=== PATIENT | female | born 1935 | race Caucasian/White ===

== ENCOUNTER → 2016-07-08 | Outpatient (CLI) | payer MEDICARE, OTHER ==
--- NOTE | 2016-07-08 14:26 | DI ---
Indication: Rectal cancer with history of chemoradiation therapy and last therapy 07/07/2016 Procedure: PET/CT SKULL TO THIGH INITIAL: Encounter: Initial Comparison: Limited/localizer abdominal pelvic CT 06/26/2016 Technique: Nuclear medicine PET scanning was performed after the administration of 15.3 mCi of F-18 FDG from the base of the skull to the thigh. Noncontrast concurrent CT scanning was performed for attenuation correction and localization purposes only. These images do not constitute a diagnostic quality CT examination and are not used to diagnose disease independently of the PET images. A glucose level before injection was 104 mg/dl. FINDINGS: Head/neck: No abnormal FDG activity identified within the visualized brain allowing for physiologic hypermetabolic activity. MRI remains the most sensitive/basilic modality for intracranial metastatic disease. No hypermetabolic cervical lymphadenopathy. Chest: Focal area of airspace consolidation within the anterior right midlung with some mild surrounding reticulonodular opacities. This demonstrates increased FDG uptake with a maximum SUV of 4.07. Nonpathologically enlarged 6 mm short axis lower right paratracheal lymph node demonstrates mildly increased FDG activity with a maximum issue be of 3.41. Partially calcified subcentimeter AP window/prevascular lymph nodes demonstrate maximum SUV of 2.03. Additional more densely calcified pulmonary nodules and mediastinal lymph nodes consistent with remote granulomatous disease. Coronary arterial and thoracic aortic atherosclerotic calcifications incidentally noted. Abdomen/pelvis: Hypermetabolic FDG uptake associated with the previously noted rectal wall thickening/biopsy-proven malignancy, with a maximum SUV of 15.8. No other hypermetabolic abdominopelvic visceral mass or lymphadenopathy identified. Moderate to large hiatal hernia, calcified splenic granulomas, cholecystectomy, aortoiliac atherosclerotic calcifications, and colonic diverticulosis incidentally noted. Osseous structures/soft tissues: No hypermetabolic osseous or soft tissue lesion seen. Degenerative spondylosis of the spine and a pain stimulator device extending to the left sacrum incidentally noted. Normal physiologic accumulation of FDG is identified within the brain, kidneys, renal collecting systems/ureters/bladder, liver, myocardium, and bone marrow. IMPRESSION: 1. Hypermetabolic FDG activity associated with the previously noted rectal wall thickening/biopsy-proven malignancy, with a maximum SUV of 15.8. 2. No other hypermetabolic abdominopelvic visceral mass or lymphadenopathy to suggest abdominopelvic metastatic disease. 3. There is however a focal area of airspace consolidation within the anterior right midlung which demonstrates a maximum SUV of 4.07 and a few mildly metabolically active however nonpathologically enlarged mediastinal lymph nodes which could represent an infectious/inflammatory process with reactive adenopathy, although metastatic disease cannot be excluded. Consider follow-up contrast enhanced chest CT in 3-4 weeks after trial of empiric antibiotic therapy to evaluate for improvement/persistence/progression. .
== END ==
LOC: IMA 08:22
PROVIDERS: ATTEND Radiology Radiation Oncology
DX: C20 Malignant neoplasm of rectum (principal); R91.8 Other nonspecific abnormal finding of lung field

== ENCOUNTER → 2016-07-09 | Outpatient (CLI) | payer MEDICARE, OTHER ==
[2016-07-09 09:58] LABS: BASOPHILS % (AUTO) 0.3 % (0-2); EOSINOPHILS # (AUTO) 0.1 T/MM3 (0-0.5); EOSINOPHILS % (AUTO) 1.9 % (0-4); HCT - HEMATOCRIT 37.8 % (36-46); HGB - HEMOGLOBIN 12.4 GM/DL (12-16); LYMPHOCYTES # (AUTO) 1.1 T/MM3 (1-4.8); LYMPHOCYTES % (AUTO) 29.9 % (23-45); MEAN CORPUSCULAR HGB 33.5 UUG (26-34); MEAN CORPUSCULAR HGB CONC(MCHC 32.8 GM/DL (31-37); MEAN CORPUSCULAR VOLUME 102.2 UM3 (80-100); MEAN PLATELET VOLUME 10.1 UM3 (9.4-12.4); MONOCYTES # (AUTO) 0.3 T/MM3 (0-0.8); MONOCYTES % (AUTO) 7.2 % (0-9.0); NEUTROPHILS #(AUTO)-ABSOLUTE 2.2 T/MM3 (1.8-7.7); NEUTROPHILS % (AUTO) 60.7 % (33-66); WBC - WHITE BLOOD COUNT 3.6 T/MM3 (4.5-11.0)
[2016-07-09 10:10] LABS: ALBUMIN 3.9 G/DL (3.5-5.0); ALBUMIN/GLOBULIN RATIO 1.2 RATIO (1.1-2.2); ALKALINE PHOSPHATASE 68 U/L (38-126); ALT (SGPT) 32 U/L (9-52); ANION GAP 6 MEQ/L (5-15); AST (SGOT) 33 U/L (14-36); BUN/CREATININE RATIO 33 RATIO (6-26); CHLORIDE 105 MEQ/L (98-107); CO2 - CARBON DIOXIDE 30 MEQ/L (22-30); GLOMERULAR FILTRATION RATE 53; GLUCOSE 108 MG/DL (65-110); POTASSIUM 4.3 MEQ/L (3.6-5); SODIUM 141 MEQ/L (134-144); TOTAL PROTEIN 7.2 G/DL (6.3-8.2)
== END ==
LOC: LAB 09:40
PROVIDERS: ATTEND Internal Medicine Medical Oncology
DX: C20 Malignant neoplasm of rectum (principal)
CPT/HCPCS: 36415; 80053; 85025

== ENCOUNTER → 2016-07-15 | Outpatient (CLI) | payer MEDICARE, OTHER ==
[2016-07-15 10:57] LABS: BASOPHILS % (AUTO) 1.1 % (0-2); EOSINOPHILS # (AUTO) 0.3 T/MM3 (0-0.5); EOSINOPHILS % (AUTO) 11.2 % (0-4); HCT - HEMATOCRIT 37.5 % (36-46); HGB - HEMOGLOBIN 12.3 GM/DL (12-16); LYMPHOCYTES # (AUTO) 0.7 T/MM3 (1-4.8); LYMPHOCYTES % (AUTO) 26.6 % (23-45); MEAN CORPUSCULAR HGB 33.5 UUG (26-34); MEAN CORPUSCULAR HGB CONC(MCHC 32.8 GM/DL (31-37); MEAN CORPUSCULAR VOLUME 102.2 UM3 (80-100); MONOCYTES # (AUTO) 0.3 T/MM3 (0-0.8); NEUTROPHILS #(AUTO)-ABSOLUTE 1.5 T/MM3 (1.8-7.7); NEUTROPHILS % (AUTO) 52.1 % (33-66); RED BLOOD COUNT 3.67 M/MM3 (4.00-5.20); WBC - WHITE BLOOD COUNT 2.8 T/MM3 (4.5-11.0)
[2016-07-15 11:07] LABS: ALBUMIN 4.1 G/DL (3.5-5.0); ALBUMIN/GLOBULIN RATIO 1.2 RATIO (1.1-2.2); ALKALINE PHOSPHATASE 68 U/L (38-126); ALT (SGPT) 27 U/L (9-52); ANION GAP 9 MEQ/L (5-15); AST (SGOT) 23 U/L (14-36); BUN/CREATININE RATIO 29 RATIO (6-26); CALCIUM 10.4 MG/DL (8.4-10.2); CHLORIDE 105 MEQ/L (98-107); CO2 - CARBON DIOXIDE 29 MEQ/L (22-30); CREATININE 1.1 MG/DL (0.7-1.2); GLOMERULAR FILTRATION RATE 48; GLUCOSE 108 MG/DL (65-110); POTASSIUM 5.1 MEQ/L (3.6-5); SODIUM 143 MEQ/L (134-144); TOTAL PROTEIN 7.4 G/DL (6.3-8.2)
== END ==
LOC: LAB 10:31
PROVIDERS: ATTEND Internal Medicine Medical Oncology
DX: C20 Malignant neoplasm of rectum (principal)
CPT/HCPCS: 36415; 80053; 85025

== ENCOUNTER → 2016-09-02 | Outpatient (CLI) | payer MEDICARE, OTHER ==
--- NOTE | 2016-09-02 13:25 | DI ---
INDICATION: ITS.REASON: C20 Malignant neoplasm of rectum PROCEDURE: CHEST 2-VIEWS UPRIGHT (PA \T\ LAT) Encounter: Initial COMPARISON: 06/26/2016 FINDINGS: The lungs are fairly clear without hypervascularity or peripheral infiltrates. Linear densities in the right lung base suggesting discoid atelectasis. There is no pleural effusion or pneumothorax. The heart is upper limits of normal. Trachea is midline with no mediastinal shift. There is a 6 cm hiatal hernia noted in midline. Bony structures show healed rib fracture posterior right lower chest wall. There is mild kyphosis and osteopenia of the dorsal spine with no compression deformity. IMPRESSION: 1. No acute cardiopulmonary disease. 2. Linear density right lung base anteriorly suggesting discoid atelectasis or evolving scarring. .
== END ==
LOC: IMA 11:31
PROVIDERS: ATTEND Internal Medicine Medical Oncology
DX: C20 Malignant neoplasm of rectum (principal); R91.8 Other nonspecific abnormal finding of lung field